=== PATIENT | female | born 2000 | race Two or more races ===

== ENCOUNTER → 2024-05-07 03:44 | Emergency (ER) | payer OTHER, SELFPAY ==
[~2024-05-07] VITALS: Ht 160 cm; Wt 107.3 kg
[2024-05-07 04:17] LABS: Basophils # (auto) 0.1 10 ^3/uL (0-0.2); Basophils % (auto) 0.6 % (0.0-2.0); Eosinophils # (auto) 0.2 10 ^3/uL (0-0.8); Eosinophils % (auto) 2.1 % (0.0-7.0); Hematocrit 45.4 % (36.0-46.0); Hemoglobin 15.4 g/dL (12.2-16.2); Lymphocytes # (auto) 4.5 10 ^3/uL (0.4-5.4); Lymphocytes % (auto) 45.2 % (10.0-50.0); Mean Corpuscular Hemoglobin 29.8 pg (28.0-32.0); Mean Corpuscular Hgb Conc. 33.8 g/dL (32.0-36.0); Mean Corpuscular Volume 88.2 fL (80.0-100.0); Monocytes # (auto) 0.8 10 ^3/uL (0-1.3); Monocytes % (auto) 7.7 % (0.0-12.0); Neutrophils # (auto) 4.4 10 ^3/uL (1.6-8.6); Neutrophils % (auto) 44.4 % (37.0-80.0); Nucleated Red Blood Cells % 0.1 %; Platelet Count (auto) 310 10^3/uL (140-450); Red Blood Cells 5.15 10^6/uL (4.0-5.20); Red Cell Distribution Width 13.3 % (11.8-14.3); White Blood Cell 9.9 10^3/uL (4.4-10.8)
[2024-05-07 04:24] LABS: Chloride 105 mmol/L (98-107); Potassium 4.2 mmol/L (3.5-5.1); Sodium 138 mmol/L (136-145)
[2024-05-07 04:25] LABS: Anion Gap 8 (5-15); Carbon Dioxide 25 mmol/L (20-31)
[2024-05-07 04:26] LABS: Calcium 10.2 mg/dL (8.7-10.4)
[2024-05-07 04:30] LABS: BUN/Creatinine Ratio 12.9 (10.0-20.0); Blood Urea Nitrogen 11 mg/dL (9-23)
[2024-05-07 04:38] LABS: Urine Bacteria None Seen /hpf (None Seen)
[2024-05-07 04:39] LABS: Glucose 140 mg/dL (74-106)
--- NOTE | 2024-05-07 04:44 | ED.PDOC ---
History of Present Illness HPI Comments 23 year old male presents to the ED with a chief complaint of dizziness onset today (05/07/24). Patient states he was at work when he began experiencing dizziness, headache, near syncopal episode. Patient believes symptoms could have been due to anxiety, believes he was experiencing panic attack. PMHx anxiety. Denies LOC, nausea, vomiting, diarrhea, chest pain, shortness of breath. No other symptoms or modifying factors present at this time. Chief Complaint: Dizziness Time Seen by MD: 04:31 Reviewed Notes: Medications, Allergies Allergies: Coded Allergies: NO KNOWN ALLERGIES (Unverified , 05/07/24) Information Source: Patient Mode of Arrival: EMS Severity: Moderate Timing: Hours Duration: Since onset Prehospital treatment: None Past Medical History PAST MEDICAL HISTORY: Anxiety Surgical History: Denies all surgeries MACHINE WHITENER History: No Pertinent MACHINE WHITENER History Family History Family History: Reviewed,noncontributory to illness, No family hx of Cancer, No family hx of DM, No family hx of Heart vincent, No family hx of HTN, No family hx ofKidney vincent, No family hx of Liver vincent, No family hx of Lung vincent, No family hx of Stroke Social History Smoker: Non-Smoker Alcohol: Denies ETOH Use Drugs: Denies Drug Use Lives In: Home Constitutional: denies: chills, diaphoresis, fatigue, fever, malaise, sweats, weakness, others EENTM: denies: blurred vision, double vision, ear bleeding, ear discharge, ear drainage, ear pain, ear ringing, eye pain, eye redness, hearing loss, mouth pain, mouth swelling, nasal discharge, nose bleeding, nose congestion, nose pain, photophobia, tearing, throat pain, throat swelling, voice changes, others Respiratory: denies: cough, hemoptysis, orthopnea, SOB at rest, shortness of breath, SOB with excertion, stridor, wheezing, others Cardiovascular: denies: chest pain, dizzy spells, diaphoresis, Dyspnea on exertion, edema, irregular heart beat, left arm pain, lightheadedness, palpitations, PND, syncope, others Gastrointestinal: denies: abdomen distended, abdominal pain, blood streaked bowels, constipated, diarrhea, dysphagia, difficulty swallowing, hematemesis, melena, nausea, poor appetite, poor fluid intake, rectal bleeding, rectal pain, vomiting, others Genitourinary: denies: abnormal vagina bleeding, burning, dyspareunia, dysuria, flank pain, frequency, hematuria, incontinence, pain, , vagina discharge, urgency, others Neurological: reports: dizziness, headache, others (near syncope); denies: fainting, left sided numbness, left sided weakness, numbness, paresthesia, pre- existing deficit, right sided numbness, right sided weakness, seizure, speech problems, tingling, tremors, weakness Musculoskeletal: denies: back pain, gout, joint pain, joint swelling, muscle pain, muscle stiffness, neck pain, others Integumetry: denies: bruises, change in color, change in hair/nails, dryness, laceration, lesions, lumps, rash, wounds, others Allergic/Immunocompromised: denies: Difficulty Healing, Frequent Infections, Hives, Itching, others Hematologic/Lymphatic: denies: anemia, blood clots, easy bleeding, easy bruising, swollen glands, others Endocrine: denies: excessive hunger, excessive sweating, excessive thirst, excessive urination, flushing, intolerance to cold, intolerance to heat, unexplained weight gain, unexplained weight loss, others Psychiatric: reports: anxiety; denies: bipolar disorder, depression, hopeless, panic disorder, schizophrenia, sleepless, suicidal, others All Other Systems: Reviewed and Negative Physical Exam General Appearance: No Apparent Distress, Normal HEENT: Normal ENT Inspection, Pharynx Normal, TMs Normal Neck: Full Range of Motion, Non-Tender, Normal, Normal Inspection Respiratory: Chest Non-Tender, Lungs Clear, No Accessory Muscle Use, No Respiratory Distress, Normal Breath Sounds Cardiovascular: No Edema, No JVD, No Murmur, No Gallop, Normal Peripheral Pulses, Regular Rate/Rhythm Breast Exam: Deferred Gastrointestinal: No Organomegaly, Non Tender, No Pulsatile Mass, Normal Bowel Sounds, Soft Genitalia: Deferred Pelvic: Deferred Rectal: Deferred Extremities: No calf tenderness, Normal capillary refill, Normal inspection, Normal range of motion, Non-tender, No pedal edema Musculoskeletal : Apperance: Normal Neurologic: Alert, social studies teacher II-XII nml as Tested, No Motor Deficits, Normal Affect, Normal Mood, No Sensory Deficits Cerebellar Function: Normal Reflexes: Normal Skin: Dry, Normal Color, Warm Lymphatic: No Adenopathy Was a procedure done? Was a procedure done?: No Differential Dx Considerations may include: Dehydration, viral syndrome, ACS, cardiac arrhythmia X-Ray, Labs, Meds, VS Vital Signs Date Time Temp Pulse Resp B/P (MAP) Pulse Ox O2 Delivery O2 Flow Rate FiO2 05/07/24 05:11 98.2 98 19 150/98 (115) 100 98.2 05/07/24 05:11 89 7 97 Room Air* 0 21 05/07/24 03:49 97.8 96 20 138/98 (111) 100 97.8 Lab Test 05/07/24 04:35 05/07/24 04:04 Range/Units Urine Color Light-yellow Yellow Urine Clarity Clear Clear Urine pH 6.0 5.0-9.0 Urine Specific [place] 1.030 1.001-1.035 Urine Protein Negative Negative Urine Ketones Trace Negative Urine Blood Negative Negative /uL Urine Nitrite Negative Negative Urine Bilirubin Negative Negative Urine Urobilinogen Normal Negative mg/dL Urine Leukocyte Esterase Negative Negative /uL Urine RBC 2 0 - 4 /hpf Urine Microscopic WBC < 1 0-5 /HPF Urine Squamous Epithelial Cells None seen <5 /hpf Urine Bacteria None seen None Seen /hpf Urine Mucus Few None Seen Urine Glucose Normal Normal mg/dL Urine Test Negative Negative White Blood Count 9.9 4.4-10.8 10^3/uL Red Blood Count 5.15 4.0-5.20 10^6/uL Hemoglobin 15.4 12.2-16.2 g/dL Hematocrit 45.4 36.0-46.0 % Mean Corpuscular Volume 88.2 80.0-100.0 fL Mean Corpuscular Hemoglobin 29.8 28.0-32.0 pg Mean Corpuscular Hemoglobin Concent 33.8 32.0-36.0 g/dL Red Cell Distribution Width 13.3 11.8-14.3 % Platelet Count 310 140-450 10^3/uL Mean Platelet Volume 7.3 6.9-10.8 fL Neutrophils (%) (Auto) 44.4 37.0-80.0 % Lymphocytes (%) (Auto) 45.2 10.0-50.0 % Monocytes (%) (Auto) 7.7 0.0-12.0 % Eosinophils (%) (Auto) 2.1 0.0-7.0 % Basophils (%) (Auto) 0.6 0.0-2.0 % Neutrophils # (Auto) 4.4 1.6-8.6 10 ^3/uL Lymphocytes # (Auto) 4.5 0.4-5.4 10 ^3/uL Monocytes # (Auto) 0.8 0-1.3 10 ^3/uL Eosinophils # (Auto) 0.2 0-0.8 10 ^3/uL Basophils # (Auto) 0.1 0-0.2 10 ^3/uL Nucleated Red Blood Cells 0.1 % Sodium Level 138 136-145 mmol/L Potassium Level 4.2 3.5-5.1 mmol/L Chloride Level 105 98-107 mmol/L Carbon Dioxide Level 25 20-31 mmol/L Anion Gap 8 5-15 Blood Urea Nitrogen 11 9-23 mg/dL Creatinine 0.85 0.550-1.02 mg/dL Glomerular Filtration Rate Calc 99 >90 mL/min BUN/Creatinine Ratio 12.9 10.0-20.0 Serum Glucose 140 H 74-106 mg/dL Calcium Level 10.2 8.7-10.4 mg/dL Time of 1ST Reevaluation: 05:01 Reevaluation 1ST: Unchanged Patient Education/Counseling: Diagnosis, Treatment, Prognosis Family Education/Counseling: No Family Present Departure 1 Departure Time of Disposition: 05:41 (Patient with multiple episodes of near-syncope and now currently has dizziness.) Impression: Primary Impression: Near syncope Additional Impression: Dizziness Disposition: 09 ADMITTED INPATIENT Admit to: Med Surg Condition: Serious Critical Care Note Critical Care Time?: No Stability Stability form required: No I personally scribed for GAYATHRI MAHONEY MD ([email or web address]) on 05/07/24 at 04:44. Electronically submitted by Love Gasca ([email or web address]). GAYATHRI MAHONEY MD May 07, 2024 04:44
[2024-05-07 04:52] LABS: Urine Blood Negative /uL (Negative); Urine Clarity Clear (Clear); Urine Color Light-Yellow (Yellow); Urine Mucus FEW (None Seen); Urine Protein, UAD Negative (Negative); Urine Squamous Epithelial Cell None Seen /hpf (<5); Urine Urobilinogen Normal (Negative); Urine WBC < 1 /HPF (0-5)
[2024-05-07] MEDS: SODIUM CHLORIDE 0.9% 1,000 ML IV ONE (05:00)
[2024-05-07 05:11] VITALS: BP 150/98; PULSE 89; RESP 7; TEMP 98.2; O2SAT 97
--- NOTE | 2024-05-07 05:50 | DVH ---
EXAM: XR Chest, 1 View CLINICAL INDICATION: dizziness TECHNIQUE: Frontal view of the chest. COMPARISON: None FINDINGS: LUNGS AND PLEURAL SPACES: Unremarkable. No consolidation. No pneumothorax. HEART: Unremarkable. No cardiomegaly. MEDIASTINUM: Unremarkable. Normal mediastinal contour. BONES/JOINTS: Unremarkable. No acute fracture. OTHER FINDINGS: . None. IMPRESSION: No acute cardiopulmonary process.
--- NOTE | 2024-05-07 05:56 | DVH ---
EXAM: CT Head Without Intravenous Contrast CLINICAL INDICATION: near syncope TECHNIQUE: Axial computed tomography images of the head/brain without intravenous contrast. This CT exam was performed using one or more of the following dose reduction techniques: automated exposure control, adjustment of the mA and/or kV according to patient size, and/or use of iterative reconstru ction technique. CONTRAST: RADIATION DOSE: CTDIvol = 55.24 mGy, DLP = 775.07 mGy-cm COMPARISON: None FINDINGS: BRAIN AND EXTRA-AXIAL SPACES: No acute intracranial hemorrhage, midline shift or mass effect. If sy mptoms persist, further evaluation with MRI is recommended. No significant white matter disease. BONES/JOINTS: Unremarkable. No acute fracture. SOFT TISSUES: Unremarkable. SINUSES: Mucous retention cysts of the left maxillary sinus. MASTOID AIR CELLS: Unremarkable as visualized. No mastoid effusion. OTHER FINDINGS: . . IMPRESSION: No acute intracranial hemorrhage, midline shift or mass effect. If symptoms persist, further evaluat ion with MRI is recommended.
[2024-05-07 06:28] VITALS: PULSE 83
--- NOTE | 2024-05-07 10:33 | ECG ---
[facility] Test Date: 2024-05-07 Test Time: 06:28:23 Pat Name: DAVIS LOZADA Department: ED Room: Gender: F Cloud Subject Matter Expert: CARLYLE : 2000 Requested By: GAYATHRI MAHONEY Order Number: [id number] Reading MD: Brodie Martines Measurements Intervals [place] Rate: 83 P: 52 [place]: 133 QRS: 63 QRSD: 86 T: 42 QT: 344 QTc: 405 Interpretive Statements Sinus rhythm ST elev, probable normal early repol pattern Electronically Signed On 05-07-2024 22:44:25 PDT by Brodie Martines Please click the below link to view image of tracing.
== END | disposition left against medical advice (07) ==
LOC: ER 03:44 → EDBD 03:44
DX: R55 Syncope and collapse (principal); R42 Dizziness and giddiness; F41.9 Anxiety disorder, unspecified
CPT/HCPCS: 36415; 70450; 71045; 80048; 81001; 81025; 85025; 93005; 96360; 99285; J7030

== ENCOUNTER 2024-05-20 10:40 | Emergency (ER) | payer SELFPAY, OTHER ==
[~2024-05-20] VITALS: Ht 160 cm; Wt 106.5 kg
[2024-05-20 12:56] VITALS: BP 127/78; PULSE 95; RESP 96; TEMP 99.1; O2SAT 96
[2024-05-20] MEDS: KETOROLAC TROMETH 60MG/2ML VIAL IM ONE (13:01)
--- NOTE | 2024-05-20 13:09 | DVH ---
CHEST RADIOGRAPH Indication: cough, fevers, rule out pna Technique: Single frontal view of the chest was obtained COMPARISON: XY CHEST PORTABLE on DOS: 05/07/24 FINDINGS: Lines and Tubes: None Lungs: Clear Pleura: No effusion. No pneumothorax. Cardiomediastinal contours: Unremarkable Bones: Unremarkable IMPRESSION: No acute disease.
[2024-05-20 14:49] LABS: COVID19 ANTIGEN SOFIA FIA NEGATIVE (NEGATIVE)
[2024-05-20 14:50] LABS: Rapid Influenza A Negative (Negative); Rapid Influenza B Negative (Negative)
[2024-05-20] MEDS ORDERED: METH-1181 PO (15:11)
[2024-05-20] MEDS ORDERED: IBUP-1454 PO (15:11)
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
== END 2024-05-20 15:18 | disposition home or self-care (01) ==
LOC: ER 10:40 → EDSEX 10:40 → ER 15:18
DX: M79.18 Myalgia, other site (principal); M79.662 Pain in left lower leg; Z20.822 Contact with and (suspected) exposure to COVID-19; V49.88XA Car occupant (driver) (passenger) injured in other specified transport accidents, initial encounter; Y93.I9 Activity, other involving external motion; Y92.488 Other paved roadways as the place of occurrence of the external cause; Y99.8 Other external cause status
CPT/HCPCS: 36415; 71045; 87426; 87804; 96372; 99284; J1885

== ENCOUNTER 2024-05-22 18:35 | Emergency (ER) | payer SELFPAY, OTHER ==
[~2024-05-22] VITALS: Ht 160 cm; Wt 101.0 kg
[~2024-05-22 18:35] MED LIST: IBUP-1454 PO; METH-1181 PO
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
[2024-05-22] MEDS: ONDANSETRON HCL 4 MG/2 ML VIAL IM ONE (20:14)
[2024-05-22] MEDS: ACETAMINOPHEN 325 MG TAB PO ONE (20:15)
[2024-05-22 20:18] VITALS: BP 135/86; RESP 20; O2SAT 97
[2024-05-22 20:36] LABS: COVID19 ANTIGEN SOFIA FIA NEGATIVE (NEGATIVE)
[2024-05-22 20:37] LABS: Rapid Influenza A Negative (Negative); Rapid Influenza B Negative (Negative)
[2024-05-22] MEDS: SODIUM CHLORIDE 0.9% 1,000 ML IV ONE (20:42)
[2024-05-22 21:18] VITALS: TEMP 98.9
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
[2024-05-22] MEDS ORDERED: DOXY100C4 PO (21:53)
[2024-05-22 21:59] VITALS: PULSE 100
== END 2024-05-22 22:07 | disposition home or self-care (01) ==
LOC: ER 18:35
DX: J06.9 Acute upper respiratory infection, unspecified (principal); R11.2 Nausea with vomiting, unspecified; R10.9 Unspecified abdominal pain; R19.7 Diarrhea, unspecified; R50.9 Fever, unspecified; F41.9 Anxiety disorder, unspecified; Z79.1 Long term (current) use of non-steroidal anti-inflammatories (NSAID); Z79.899 Other long term (current) drug therapy; Z20.822 Contact with and (suspected) exposure to COVID-19
CPT/HCPCS: 36415; 70450; 74176; 87426; 87804; 96360; 96372; 99285; J2405; J7030